=== PATIENT | male | born 1970 | race Caucasian/White ===

== ENCOUNTER → 2017-01-31 | Outpatient (CLI) | payer BC ==
[~2017-01-31] VITALS: Ht 182.9 cm; Wt 110.1 kg
[~2017-01-31] MED LIST: *RESP: ALBUTEROL 2.5 MG/3 ML NEB (PRN) PERIprocedural Use ONLY NEB ONE; CHLORHEXIDINE GLUCONATE 2 % 1 PACK (2 CLOTHS) TOPICAL PRN; DO NOT ADM ANY ANTICOAGULANT DRUGS PRN; EMPA1TAB PO; HYDR10TA16; KETAMINE HCL 500 MG/5 ML VIAL ONE; LACTATED RINGER'S 1000 ML IV PRN; LIDOCAINE HCL 1% PF 5 ML SYRINGE OTHER ONE; METF500T PO; METOPROLOL TARTRATE 25 MG TAB PO PRN; NEUR600T; OMEP20CA5; PHENYLEPH/NS 1000 MCG/10 ML SYR IV ONE; POVIDONE IODINE 5% (ANTISEPSIS KIT) 4 APPLICATIONS EACH NARE PRN; PRIL20TA2 PO; PROPOFOL 200 MG/20 ML AMP IV ONE; SODIUM CHLORID 0.9% 500 ML IV PRN; SUCCINYLCHOLINE CHLORIDE 100 MG/5 ML SYRINGE IV PUSH ONE
--- NOTE | 2017-01-31 14:56 | GIPROC ---
[facility] [address] [facility]. [facility], [address] EGD PROCEDURE REPORT EXAM DATE: 01/31/2017 PATIENT NAME: Spenser Strong MR #: [id number] BIRTHDATE: 1970 ATTENDING: Robert Ortiz MD ORDER #: [id number] HOT CELL TECHNICIAN: Katty Collins and Berta Hull STATUS: outpatient INDICATIONS: The patient is a 46 yr old male here for an EGD due to bloating, morning nausea/emeis of material hed eaten the evening before; early satiety. He takes Prilosec daily. His Hgb A1c is 5.7. He can't tolerate gluten or soy. PROCEDURE PERFORMED: EGD w/ biopsy MEDICATIONS: Per Anesthesia. TOPICAL ANESTHETIC: none CONSENT: The patient understands the risks and benefits of the procedure and understands that these risks include, but are not limited to: sedation, allergic reaction, infection, perforation and/or bleeding. Alternative means of evaluation and treatment include, among others: physical exam, x-rays, and/or surgical intervention. The patient elects to proceed with this endoscopic procedure. medical equipment was checked for proper function. Hand hygiene and appropriate measures for infection prevention was taken. After the risks, benefits and alternatives of the procedure were thoroughly explained, Informed consent was verified, confirmed and timeout was successfully executed by the treatment team. The patient was anesthetized with topical anesthesia and the Pentax [id number] endoscope was introduced through the mouth and advanced to the . Retroflexion was performed The gastroscope was then slowly withdrawn and removed. The gastric rugae were very erythematous and hypertrophied; biopsies were taken. The pylorus was spastic but not stenotic. ESOPHAGUS: The mucosa of the esophagus appeared normal. DUODENUM: The duodenal mucosa appeared normal. ADVERSE EVENTS: There were no complications. IMPRESSIONS: 1. The gastric rugae were very erythematous and hypertrophied; biopsies were taken. The pylorus was spastic but not stenotic 2. The esophagus appeared normal 3. Normal duodenal mucosa 4. Retroflexion was performed RECOMMENDATIONS: 1. Await biopsy results. Biopsy results will not be ready for 7-10 days. If you don't hear from us in two weeks, call our office for biopsy results. 2. Continue the gastroparesis diet. PATIENT CONDITION: stable DISPOSITION: Home REPEAT EXAM: Robert Ortiz MD eSigned: Robert Ortiz MD 01/31/2017 2:55 PM cc: Alejandro Freire M.D. PATIENT NAME: Spenser Strong MR#: [id number]
--- NOTE | 2017-01-31 15:04 | GIPROC ---
[facility] [address] [facility]. [facility], [address] COLONOSCOPY PROCEDURE REPORT EXAM DATE: 01/31/2017 PATIENT NAME: Spenser Strong MR #: [id number] BIRTHDATE: 1970 ENDOSCOPIST: Robert Ortiz MD ORDER #: [id number] RESEARCH GENETICIST: Katty Collins and Berta Hull STATUS: outpatient INDICATIONS: The patient is a 46 yr old male here for a colonoscopy due to diarrhea. He takes metformin and a statin, both of which may cause diarrhea. PROCEDURE PERFORMED: Colonoscopy with biopsy Colonoscopy with polypectomy MEDICATIONS: Per Anesthesia. PREP QUALITY: suboptimal ESTIMATED BLOOD LOSS: None CONSENT: The patient understands the risks and benefits of the procedure and understands that these risks include, but are not limited to: sedation, allergic reaction, infection, perforation and/or bleeding. Alternative means of evaluation and treatment include, among others: physical exam, x-rays, and/or surgical intervention. The patient elects to proceed with this endoscopic procedure. medical equipment was checked for proper function. Hand hygiene and appropriate measures for infection prevention was taken. After the risks, benefits and alternatives of the procedure were thoroughly explained, Informed consent was verified, confirmed and timeout was successfully executed by the treatment team. A digital exam was performed and revealed no abnormalities of the rectum The Pentax [id number] endoscope was introduced through the anus and advanced to the cecum, which was identified by both the appendix and ileocecal valve. The instrument was then slowly withdrawn as the colon was fully examined. COLON FINDINGS: Five polyps, 2-10mm in size, 4 sessile and one pedunculated, were removed with snare cautery. Because of the suboptimal prep, others may have been missed. Random mucosal biopsies were taken to check for subclinical colitis. The scope was then completely withdrawn from the patient and the procedure terminated. ADVERSE EVENTS: There were no complications. IMPRESSIONS: 1. Five polyps, 2-10mm in size, 4 sessile and one pedunculated, were removed with snare cautery. Because of the suboptimal prep, others may have been missed. Random mucosal biopsies were taken to check for subclinical colitis 2. Retroflexion Was performed 3. and Revealed no abnormalities of the rectum RECOMMENDATIONS: Await biopsy results. Biopsy results will not be ready for 7-10 days. If you don't hear from us in two weeks, call our office for results. RECALL: Return 6 months Colonoscopy with a different prep. Return office visit in 3-4 weeks. Robert Ortiz MD eSigned: Robert Ortiz MD 01/31/2017 3:04 PM cc: Apple Mcrae M.D. PATIENT NAME: Spenser Strong MR#: [id number]
[2017-01-31 16:30] VITALS: BP 119/78; PULSE 87; RESP 18; TEMP 98.6; O2SAT 98
== END ==
LOC: HSDC 11:14
DX: R19.7 Diarrhea, unspecified (principal); D12.2 Benign neoplasm of ascending colon; D12.3 Benign neoplasm of transverse colon; D12.5 Benign neoplasm of sigmoid colon; K62.1 Rectal polyp; R14.0 Abdominal distension (gaseous); R11.2 Nausea with vomiting, unspecified; R68.81 Early satiety; K31.3 Pylorospasm, not elsewhere classified
CPT/HCPCS: 00740; 00810; 43239; 45380; 88305; 88312; 94664; J0330; J2370; J7120; J7613